=== PATIENT | male | born 1985 | race Caucasian/White ===

== ENCOUNTER 2025-04-06 16:31 | Emergency (ER) | payer OTHER, SELFPAY ==
[2025-04-06 16:32] VITALS: BP 125/81
--- NOTE | 2025-04-06 16:56 | ED.GENMED ---
History of Present Illness
General
Chief Complaint: Weakness
Source: patient
Exam Limitations: none
Time Seen by Provider: 04/06/25 16:54
Nursing documentation reviewed up to this point in time: agreed with except
History of Present Illness
History of Present Illness:
40 yo male with no significant past medical history until March 19 when he had 10 days of diarrhea anytime he ate it will go right through him, this occurred for about 10 days then subsided. He saw his PCP Dr. Hebert on 03/28, was feeling better
at that time so no treatment given.
03/29: Developed swelling in his hands, wrists, around his eyes and over the next few days developed pain in all of his joints that moved around as well as swelling that was waxing and waning mainly in his hands and wrists and shoulders.
03/30: To [facility] PCP saw PA: for abdominal symptoms: put on Cipro and Flagyl for the diarrhea, which pt took for 6 days and stopped on 04/04 due to worsening joint pains and swelling
03/31: Went to [facility] ER due to the swelling,and joint pains, they did numerous blood tests (results on phone reviewed: including Lyme's which was negative, his alk phos was slightly elevated at 124, his WBCs were 12.2, with eosinophilia and
his CRP was elevated at 2.86 ( nl 0.8) They gave him Toradol and he felt better for 2 days.
04/03: Back to PCP Dr. Hebert for worsening swelling, joint pains: told to observe and see if it 'runs it's course.'
Pt denies n/v. Diarrhea is completely cleared. Denies fever/chills. Continues with joint pains and swelling.
Past History
Past History
ED Past Medical History: None
ED Past Surgical History: None
Social History
Tobacco: Non-smoker
Alcohol: Occasional
Personal:
Living: with family
Employment: Employed
Review of Systems
Review of Systems
Allergies reviewed?: Yes
All Other Systems: ROS reviewed and negative except as documented in HPI and ROS
Phy Exam
Physical Exam
Physical Exam:
GENERAL: No acute distress. A&Ox3.
CONSTITUTIONAL: Afebrile.
EYES: clear, conjunctivae normal
ENMT: moist mucus membranes, Pharynx nl, TMs normal
RESPIRATORY: Regular respirations, nonlabored, lungs clear.
CARDIOVASCULAR: Regular rate and rhythm, no murmurs, no rubs.
GI: Soft, nontender, normal BS
MUSCULOSKELETAL: Mild swelling right hand and wrist. Pain but no swelling with movement of both upper and lower extremity joints. Neck is 'sore' but not as bad as rest of joints. Moves with ease but limited ROM of joints due to pain. Well perfused.
SKIN: Warm, dry, pink. No rash
PSYCH: Normal mood and affect. Well kept, interactive and appropriate
NEUROLOGIC: Awake, alert and oriented. No focal neurological deficits
Course
Orders/Labs/Results
Orders:
Orders
04/06/25 17:17
Doxycycline [Vibramycin] 100 mg PO NOW STA
04/06/25 17:23
Ehrlichia/Anaplasma by PCR [S] Urgent
Lyme Progressive Urgent
Blood Parasites Urgent
LEILA Source: Blood/Venous
Specimen Description:
Vital Signs
Initial and Last Documented VS:
Initial Vital Signs
Temp Pulse Resp BP Pulse Ox
98.5 F 100 18 125/81 98
04/06/25 16:32 04/06/25 16:32 04/06/25 16:32 04/06/25 16:32 04/06/25 16:32
Last Documented Vital Signs
Temp Pulse Resp BP Pulse Ox
98.5 F 87 20 116/67 97
04/06/25 16:32 04/06/25 18:45 04/06/25 18:45 04/06/25 18:00 04/06/25 17:05
Instructional Supervisor consulted with Physician
Instructional Supervisor consulted with physician?: Yes
Name of Physician Consulted: Juan
MDM/Problems Addressed
Differential Diagnosis Includes:
Tick borne disease, Lyme's, Babesiosis, Ehrlichiosis.
MDM/Problems Addressed:
40 yo male with no significant past medical history until March 19 when he had 10 days of diarrhea anytime he ate it will go right through him, this occurred for about 10 days then subsided. He saw his PCP Dr. Hebert on 03/28, was feeling better
at that time so no treatment given.
03/29: Developed swelling in his hands, wrists, around his eyes and over the next few days developed pain in all of his joints that moved around as well as swelling that was waxing and waning mainly in his hands and wrists and shoulders.
03/30: To [facility] PCP saw PA: for abdominal symptoms: put on Cipro and Flagyl for the diarrhea, which pt took for 6 days and stopped on 04/04 due to worsening joint pains and swelling
03/31: Went to [facility] ER due to the swelling,and joint pains, they did numerous blood tests (results on phone reviewed: including Lyme's which was negative, his alk phos was slightly elevated at 124, his WBCs were 12.2, with eosinophilia and
his CRP was elevated at 2.86 ( nl 0.8) They gave him Toradol and he felt better for 2 days.
04/03: Back to PCP Dr. Hebert for worsening swelling, joint pains: told to observe and see if it 'runs it's course.'
Pt denies n/v. Diarrhea is completely cleared. Denies fever/chills. Continues with joint pains and swelling.
Afebrile, NAD
No meningeal signs, no cardiac symptoms, no fever. Not toxic appearing.
With recent blood work less than a week ago at [facility], all reviewed on pt phone and abnormals listed above, no indication to repeat those labs, it will not change the treatment.
Pt to call me in 3 days to see if results back. Return instructions reviewed, all questions answered.
Rx for Doxycycline sent to his pharmacy.
*Pulse Oximetry
SaO2: 98
Oxygen Mode of Delivery: Room air
Patient hypoxic: no
*Critical Care Note
Total Time (30-74mins, 75-104mins- exclusive of procedures): Not Applicable
ED Attending Note
-
Portions of this chart may have been created with voice recognition software.� Occasional wrong word or��sound alike� substitutions may have occurred due to the inherent limitations of voice recognition software.
Discharge Plan
Departure
Patient Disposition: Home (Routine Discharge)
Date of Disposition: 04/06/25
Time of Disposition: 18:42
Patient with high blood pressure during this ER visit?: No
Condition: Fair
Discharge Problem:
Painful swelling of joint
Instructions: Swollen Joints (DC)
Prescriptions:
New
doxycycline hyclate 100 mg capsule
100 mg PO BID Qty: 42 0RF
Referrals:
Keila Hebert MD [Family Provider, Internal Medicine]
Mell Delarosa MD [Active, Infectious Diseases] - As needed
Activity Restrictions/Additional Instructions:
As we discussed, I sent a prescription to your pharmacy for doxycycline to take 100 mg twice a day, started tomorrow you were given a dose here today.
You may use Tylenol or ibuprofen as needed for pain
Return here at any time if your symptoms worsen, you develop significant headache, neck stiffness, fever above 100.5, chills or feeling sicker in any way.
You may call me Tuesday between 9 AM and 5 PM to see if any results are back. [phone]
Interventions
Interventions:
*Risk Screen - Suicide Last Done: 04/06/25 16:32
*General Assessment Last Done: 04/06/25 16:32
*Neglect/Abuse Screening Last Done: 04/06/25 16:32
*ED COVID-19 Vaccine History Last Done: 04/06/25 17:05
*ED Influenza Vaccine History Last Done: 04/06/25 17:05
*Nursing Disposition Last Done: 04/06/25 18:47
ED- Cardiac Assessment Last Done: 04/06/25 17:05
ED- Neurological Assessment Last Done: 04/06/25 17:05
ED- Pulmonary Assessment Last Done: 04/06/25 17:05
Discharge Date and Time
Discharge Date/Time: 04/06/25 18:54
Print Language: GERMAN
[2025-04-06] MEDS: VIBRAMYCIN 100 MG PO (17:22)
[2025-04-06 18:00] VITALS: BP 116/67
[2025-04-08 15:38] LABS: Lyme Antibody Screen, EIA Negative (Negative)
== END 2025-04-06 18:54 | disposition home or self-care (01) ==
LOC: EMR 16:31
PROVIDERS: Registered Nurse; EMERGENCY PHYSICIAN Emergency Medicine; FAMILY PHYSICIAN Internal Medicine
DX: M25.442 Effusion, left hand (principal); M25.441 Effusion, right hand; M25.432 Effusion, left wrist; M25.431 Effusion, right wrist; M25.412 Effusion, left shoulder; M25.411 Effusion, right shoulder
CPT/HCPCS: 99283; 86618; 87015; 87207; 87468; 87484; 87798

== ENCOUNTER 2025-04-18 19:15 | Emergency (ER) | payer OTHER, SELFPAY ==
[2025-04-18 19:21] VITALS: BP 137/88
[2025-04-18 20:29] VITALS: BP 125/74; BMI 26.9
[2025-04-18] MEDS: NSS 1000 IV (20:49)
--- NOTE | 2025-04-18 20:50 | ED.GENMED ---
History of Present Illness
<Fred Nolasco PA-C - Last Filed: 04/18/25 23:58>
General
Chief Complaint: Back Pain
Source: patient
Time Seen by Provider: 04/18/25 20:07
History of Present Illness
History of Present Illness:
40-year-old male with no reported past medical history presenting to the ER for evaluation of a multitude of symptoms that been ongoing for the last month, symptoms initially started with a few days of diarrhea which has been thought to be related
to farm fresh eggs from a friend, most of the GI symptoms now resolved but since that time patient has had waxing and waning joint pain, today the polyarthralgia was at its worst which is what prompted the patient to come back to the ER this
evening. Patient initially went to [facility] where he had blood work done and was treated with Toradol and fluids with the Toradol giving the patient significant relief for about 2 days but then his symptoms returned, went to his primary
care provider who did not perform any further workup and told the patient this would like to run its course and then go away, persistent symptoms brought the patient to the ER here about 2 weeks ago where he had tickborne illness testing performed
and was given doxycycline twos start empirically but after negative testing stopped taking this doxycycline. Patient started taking a GI supplement today with patient's feeling that the this potentially could be causing the current symptoms.
The only new symptom patient noticed today was rash to the palms bilaterally that are not painful or pruritic.
Past History
<Fred Nolasco PA-C - Last Filed: 04/18/25 23:58>
Past History
ED Past Medical History: None
ED Past Surgical History: Orthopedic
Social History
Tobacco: Non-smoker
Alcohol: Occasional
Drug: None
Personal:
Living: with family
Employment: Employed
Review of Systems
<Fred Nolasco PA-C - Last Filed: 04/18/25 23:58>
Review of Systems
All Other Systems: ROS reviewed and negative except as documented in HPI and ROS
Phy Exam
<Fred Nolasco PA-C - Last Filed: 04/18/25 23:58>
Physical Exam
Physical Exam:
GENERAL: Alert , in no apparent distress
HEAD: Normocephalic atraumatic
EYE: conjunctiva clear
NECK: Supple
ENT: o/p clr, mmm.
CARDIAC: Regular rate and rhythm
LUNGS: Clear breath sounds bilaterally, no acute respiratory distress, no wheezes/rales/rhonchi
NEUROLOGICAL: Alert and oriented
SKIN: Warm and dry, skin intact.
MUSCULOSKELETAL: well perfused.
PSYCH: Normal and appropriate interaction.
Scores
<Fred Nolasco PA-C - Last Filed: 04/18/25 23:58>
Heart Failure Risk
Heart Failure Risk Score: Not Applicable
Heart Score for Chest Pain Patients
STEMI patient?: Not applicable
Withdrawal Assessment of Alcohol
Withdrawal Assessment Completed?: Not applicable
Course
<Fred Nolasco PA-C - Last Filed: 04/18/25 23:58>
Orders/Labs/Results
Orders:
Orders
04/18/25 20:45
0.9% Sodium Chloride 1000 ml [Nss] 1,000 ml IV BOLUS
Dexamethasone Sod Phosphate [Decadron] 10 mg IV NOW STA
Ketorolac [Toradol] 30 mg IV NOW STA
04/18/25 20:49
CRP [C-Reactive Protein] Urgent
Complete Blood Count/With Diff Urgent
Comprehensive Metabolic Panel Urgent
ESR [Erythrocyte Sed Rate] Urgent
RPR [Syphilis/T. pallidum Ab Reflex] Urgent
Abnormal Lab Results
04/18/25
20:49
WBC 17.6 H 10^3/uL
(4.8-10.8)
RBC 4.35 L 10^6/uL
(4.70-6.10)
MCV 94.5 H fL
(80.0-94.0)
MCH 33.1 H pg
(27.0-31.0)
Abs Immat Gran (auto) 0.1 H 10^3/uL
(0-0.05)
Absolute Neuts (auto) 14.8 H 10^3/uL
(1.4-6.5)
Absolute Lymphs (auto) 0.8 L 10^3/uL
(1.2-3.4)
Absolute Monos (auto) 0.9 H 10^3/uL
(0.1-0.6)
Absolute Eos (auto) 0.9 H 10^3/uL
(0-0.7)
Neutrophils % 84.2 H %
(42.2-75.2)
Lymphocytes % 4.6 L %
(20.5-51.1)
Glucose 111 H mg/dl
(70-99)
C-Reactive Protein 31.60 H mg/L
(0.0-10.00)
04/18/25 20:49
04/18/25 20:49
Vital Signs
Initial and Last Documented VS:
Initial Vital Signs
Temp Pulse Resp BP Pulse Ox
98.4 F 101 18 137/88 98
04/18/25 19:21 04/18/25 19:21 04/18/25 19:21 04/18/25 19:21 04/18/25 19:21
Last Documented Vital Signs
Temp Pulse Resp BP Pulse Ox
98.4 F 101 18 125/74 97
04/18/25 19:21 04/18/25 19:21 04/18/25 19:21 04/18/25 20:29 04/18/25 22:15
<Cheryle Thomas DO - Last Filed: 04/18/25 22:47>
Orders/Labs/Results
Orders:
Orders
04/18/25 20:45
0.9% Sodium Chloride 1000 ml [Nss] 1,000 ml IV BOLUS
Dexamethasone Sod Phosphate [Decadron] 10 mg IV NOW STA
Ketorolac [Toradol] 30 mg IV NOW STA
04/18/25 20:49
CRP [C-Reactive Protein] Urgent
Complete Blood Count/With Diff Urgent
Comprehensive Metabolic Panel Urgent
ESR [Erythrocyte Sed Rate] Urgent
RPR [Syphilis/T. pallidum Ab Reflex] Urgent
Abnormal Lab Results
04/18/25
20:49
WBC 17.6 H 10^3/uL
(4.8-10.8)
RBC 4.35 L 10^6/uL
(4.70-6.10)
MCV 94.5 H fL
(80.0-94.0)
MCH 33.1 H pg
(27.0-31.0)
Abs Immat Gran (auto) 0.1 H 10^3/uL
(0-0.05)
Absolute Neuts (auto) 14.8 H 10^3/uL
(1.4-6.5)
Absolute Lymphs (auto) 0.8 L 10^3/uL
(1.2-3.4)
Absolute Monos (auto) 0.9 H 10^3/uL
(0.1-0.6)
Absolute Eos (auto) 0.9 H 10^3/uL
(0-0.7)
Neutrophils % 84.2 H %
(42.2-75.2)
Lymphocytes % 4.6 L %
(20.5-51.1)
Glucose 111 H mg/dl
(70-99)
C-Reactive Protein 31.60 H mg/L
(0.0-10.00)
04/18/25 20:49
04/18/25 20:49
Vital Signs
Initial and Last Documented VS:
Initial Vital Signs
Temp Pulse Resp BP Pulse Ox
98.4 F 101 18 137/88 98
04/18/25 19:21 04/18/25 19:21 04/18/25 19:21 04/18/25 19:21 04/18/25 19:21
Last Documented Vital Signs
Temp Pulse Resp BP Pulse Ox
98.4 F 101 18 125/74 97
04/18/25 19:21 04/18/25 19:21 04/18/25 19:21 04/18/25 20:29 04/18/25 22:15
<Fred Nolasco PA-C - Last Filed: 04/18/25 23:58>
MDM/Problems Addressed
Differential Diagnosis Includes:
RA
OA
Syphilis - palmar rash
Lupus
Erythema Multiforme
Electrolyte imbalance
medication reaction
MDM/Problems Addressed:
40-year-old male presenting back to the emergency department for evaluation of polyarthralgia. Has been to this ER once in another ER earlier in the month with no specific etiologies found. Overall I doubt any emergent pathologies and that patient
likely needs further outpatient workup, potentially with rheumatology. He did report that he had relief with Toradol at the previous emergency department so we will treat with this as well as a dose of Decadron as I do suspect more of an
inflammatory complication. Will repeat labs but overall expect discharge home with continued outpatient workup.
<Fred Nolasco PA-C - Last Filed: 04/18/25 23:58>
*Pulse Oximetry
SaO2: 98
Oxygen Mode of Delivery: Room air
Patient hypoxic: no
*Critical Care Note
Total Time (30-74mins, 75-104mins- exclusive of procedures): Not Applicable
<Fred Nolasco PA-C - Last Filed: 04/18/25 23:58>
Patient Management
Escalation/DeEscalation of care consider admission/obs:
Patient's workup did reveal a leukocytosis of 17,000 but at this time on clear of the significance of this. CRP was also significantly elevated but an ESR that is within normal limits. Patient reported considerable relief of pain with the Toradol
and Decadron and feels comfortable being discharged home with close follow-up with primary care provider as well as with information for rheumatology. A long-term steroid taper was also provided. Aware of return precautions but otherwise stable
for discharge.
ED Attending Note
<Fred Nolasco PA-C - Last Filed: 04/18/25 23:58>
-
Portions of this chart may have been created with voice recognition software.� Occasional wrong word or��sound alike� substitutions may have occurred due to the inherent limitations of voice recognition software.
<Cheryle Thomas DO - Last Filed: 04/18/25 22:47>
ED Attending Note
Patient seen and examined by attending physician: Yes
I performed the substantive portion of visit, reviewed & personally made and approve the management plan that is documented in note by myself or RADAMES.: Yes
I performed a history and physical exam of patient and discussed management with resident, I reviewed resident's note and agree with documented findings and plan of care.: Yes
ED Attending Note:
40-year-old male without significant past medical history presenting to the emergency department for continued diffuse joint pain. Patient reports symptoms on and off for the past month. Reports symptoms started about a month ago after he thought
he had some bad eggs. He had a lot of GI distress, saw a new primary care doctor. Symptoms had improved, however then started to develop diffuse joint pain including his shoulders, wrists, shoulders, hips. He was seen at [place] and thought to
have Lyme disease. He was prophylactically started on doxycycline, however Lyme test came back negative. After he finished the doxycycline, symptoms returned so he came to the ER and had other blood parasite sent, which were also negative. Notes
overall interval improvement, however 2 days ago symptoms returned, again with diffuse joint pain. Denies associated fevers. Denies numbness or tingling. Denies any injuries. Does note some family history of autoimmune issues.
Vital signs on arrival significant for mild tachycardia. On exam, patient resting comfortably, no acute distress, nontoxic. No focal joint swelling. No erythema, no warmth. Intact range of motion. Patient seen and evaluated by physician
post production assistant prior to my assessment, had Toradol and Decadron with interval improvement. Labs significant for leukocytosis as well as elevated CRP, nonspecific. At this time suspect polyarthralgia, possibly reactive from virus versus autoimmune
disease. No current physical exam findings concerning for bacterial origin of symptoms. Again no concerning features on exam. Feel stable for discharge, however with interval follow-up with dermatology for full rheumatologic panel. Will start
patient on extended course of steroids. Return precautions discussed and patient verbalized understanding
Discharge Plan
Departure
Patient Disposition: Home (Routine Discharge)
Date of Disposition: 04/18/25
Time of Disposition: 22:25
Patient with high blood pressure during this ER visit?: No
Discharge Problem:
Polyarthralgia
Instructions: Muscle, joint, and bone pain (DC)
Prescriptions:
New
prednisone 10 mg Tablet
See Rx Instructions .ROUTE .COMPLEX Qty: 45 0RF
Rx Instructions:
Take By Mouth:
50 mg daily x3 days, 40 mg daily x3 days,
30 mg daily x3 days, 20 mg daily x3 days,
10 mg daily x3 days
No Action
doxycycline hyclate 100 mg capsule
100 mg PO BID Qty: 42 0RF
Referrals:
Keila Hebert MD [Family Provider, Internal Medicine]
Aldair Dougherty DO [Active, Rheumatology]
Referral Note: Call for appointment
Interventions
Interventions:
*Risk Screen - Suicide Last Done: 04/18/25 19:16
*General Assessment Last Done: 04/18/25 20:38
*Neglect/Abuse Screening Last Done: 04/18/25 19:16
*ED- Fall Risk Assessment Last Done: 04/18/25 20:38
*ED COVID-19 Vaccine History Last Done: 04/18/25 20:38
*ED Influenza Vaccine History Last Done: 04/18/25 20:38
*Nursing Disposition Last Done: 04/18/25 22:36
ED-Musculoskeletal Assessment Last Done: 04/18/25 20:38
Discharge Date and Time
Discharge Date/Time: 04/18/25 22:37
Print Language: VIETNAMESE
[2025-04-18 20:57] LABS: Hematocrit 41.1 % (39.0-52.0); Hemoglobin 14.4 g/dL (13.0-18.0); Mean Corp Hgb Conc. 35.0 g/dL (33.0-37.0); Mean Corpuscular Volume 94.5 fL (80.0-94.0); Nucleated Red Blood Cells % 0 % (-); Platelet Count 333 10^3/uL (130-400); Red Cell Dist. Width 11.9 % (11.5-14.5)
[2025-04-18 21:14] LABS: ALT (SGPT) 21 U/L (0-50); AST (SGOT) 22 U/L (17-59); Albumin 4.1 g/dl (3.5-5.0); Alkaline Phosphatase 107 U/L (38-126); Blood Urea Nitrogen 20 mg/dl (9-20); Calcium 9.5 mg/dl (8.4-10.2); Carbon Dioxide 29 mmol/L (22-30); Chloride 102 mmol/L (98-107); Estimated Creatinine Clearance 96 ml/min; Glucose 111 mg/dl (70-99); Potassium 4.3 mmol/L (3.5-5.1); Sodium 136 mmol/L (135-145); Total Protein 6.5 g/dl (6.3-8.2); eGFR > 60.00
[2025-04-18 21:16] LABS: C-Reactive Protein 31.60 mg/L (0.0-10.00)
[2025-04-18] MEDS: TORADOL 30 MG IV (21:20)
[2025-04-18] MEDS: DECADRON 10 MG IV (21:20)
[2025-04-19 16:34] LABS: Syphilis/T. pallidum Ab Reflex Negative (Negative)
== END 2025-04-18 22:37 | disposition home or self-care (01) ==
LOC: EMR 19:15
PROVIDERS: Physician Assistant Medical; EMERGENCY PHYSICIAN Student in an Organized Health Care Education/Training Program; FAMILY PHYSICIAN Internal Medicine
DX: M25.512 Pain in left shoulder (principal); M25.511 Pain in right shoulder; M25.532 Pain in left wrist; M25.531 Pain in right wrist; M25.552 Pain in left hip; M25.551 Pain in right hip; D72.829 Elevated white blood cell count, unspecified
CPT/HCPCS: 96374; 96375; 96361; 99284; 80053; 85025; 85652; 86140; 86780